=== PATIENT | female | born 1935 | race Caucasian/White ===

== ENCOUNTER → 2017-02-10 12:27 | Outpatient (CLI) | payer MEDICARE, OTHER ==
[2014-12-13 09:04] VITALS: BMI 38.5
[~2017-02-10 12:27] MED LIST: ANTIVERT25 MG PO; COZAAR100 MG PO; DIABETA5 MG PO; GLUCOPHAGE850 MG PO; NORCO 5/325 TAB1 TA1 PO; PRAVACHOL20 MG PO; PRILOSEC20 MG PO
== END | disposition home or self-care (01) ==
LOC: D.LAB 12:27
DX: K59.00 Constipation, unspecified (principal)

== ENCOUNTER → 2018-05-25 15:01 | Outpatient (CLI) | payer MEDICARE, OTHER ==
[2014-12-13 09:04] VITALS: BMI 38.5
== END | disposition home or self-care (01) ==
LOC: D.CT 15:01
DX: R10.13 Epigastric pain (principal)